=== PATIENT | female | born 1970 | race Caucasian/White ===

== ENCOUNTER 2017-10-19 14:56 | Emergency (ER) | payer BC, OTHER ==
[2017-10-19] MEDS ORDERED: TYLENOL PO ONE (18:29)
[2017-10-19 18:36] VITALS: BP 153/84
[2017-10-19 19:32] LABS: Basophils # (Auto) 0.1 K/mm3 (0.0-0.1); Basophils % (Auto) 1.2 % (0.0-1.8); Eosinophils # (Auto) 0.1 K/mm3 (0.0-0.4); Hemoglobin 13.3 gm/dl (10.1-14.3); Lymphocytes # (Auto) 1.8 K/mm3 (1.2-5.4); Lymphocytes % (Auto) 24.6 % (13.4-35.0); Mean Corpuscular HGB Conc 34 % (30-34); Mean Corpuscular Hemoglobin 32 pg (28-32); Mean Corpuscular Volume 95 fl (79-97); Monocytes # (Auto) 0.7 K/mm3 (0.0-0.8); Monocytes % (Auto) 9.8 % (0.0-7.3); Platelet Count 303 K/mm3 (140-440); Red Blood Count 4.12 M/mm3 (3.65-5.03); Red Cell Distribution Width 13.7 % (13.2-15.2)
[2017-10-19 19:54] LABS: BUN/Creatinine Ratio 20; Blood Urea Nitrogen 10 mg/dL (7-17); Calcium 9.3 mg/dL (8.4-10.2); Hemolysis Index 11
[2017-10-19] MEDS ORDERED: NORCO 5/325 PO ONE (20:26)
--- NOTE | 2017-10-19 20:26 | Emergency Department Report ---
HPI - General Chief Complaint: Abdominal Pain Time Seen by Provider: 10/19/17 19:52 - HPI HPI: 46-year-old female presents to the emergency department with complaint of a 3 day history of left-sided pelvic pain. This appeared to worsen last night and the patient says she was unable to get any sleep. She works at [employer] office and had a ultrasound done briefly appeared to show some fluid and/or blood around the ovaries. The patient has a history of a hysterectomy of the uterus. She has a history of hypertension and hyperthyroidism. She was given some Tylenol per triage which she says has helped decrease the discomfort to some extent. She has some nausea without vomiting. She denies any fever, dysuria, constipation or diarrhea. ED Past Medical Hx - Past Medical History Hx Hypertension: Yes Additional medical history: hypothyroid - Surgical History Hx Cholecystectomy: Yes Additional Surgical History: , tonsillectomy, breast reduction, hysterectomy - Social History Smoking Status: Never Smoker Substance Use Type: None - Medications Home Medications: Home Medications Medication Instructions Recorded Confirmed Last Taken Type Benazepril/Hydrochlorothiazide 1 tab PO DAILY 03/14/15 03/14/15 Unknown History [Benazepril-Hctz 20-25 mg] Metoprolol [Lopressor] 100 mg PO DAILY 03/14/15 03/14/15 Unknown History Dicyclomine [Bentyl] 10 mg PO QID PRN #20 capsule 03/15/15 Unknown Rx Ondansetron [Zofran Odt] 4 mg PO QID PRN #20 tab.rapdis 03/15/15 Unknown Rx HYDROcodone/APAP 5-325 [[place] 1 each PO Q6HR PRN #12 tablet 10/19/17 Unknown Rx 5/325] ED Review of Systems ROS: Stated complaint: OVARY CIST, BLEEDING Other details as noted in HPI Comment: All other systems reviewed and negative Constitutional: denies: chills, fever Eyes: denies: eye pain, eye discharge, vision change ENT: denies: ear pain, throat pain Respiratory: denies: cough, shortness of breath, wheezing Cardiovascular: denies: chest pain, palpitations Gastrointestinal: abdominal pain, nausea. denies: vomiting, diarrhea, constipation Genitourinary: other (pelvic pain). denies: dysuria, discharge Musculoskeletal: denies: back pain, joint swelling, arthralgia Skin: denies: rash, lesions Neurological: denies: headache, weakness, paresthesias Physical Exam - Physical Exam Vital Signs: Vital Signs 10/19/17 10/19/17 15:36 18:34 Temperature 98.4 F 97.8 F Pulse Rate 67 60 Respiratory 18 18 Rate Blood Pressure 135/99 153/84 O2 Sat by Pulse 98 98 Oximetry Physical Exam: GENERAL: The patient is well-developed well-nourished. HENT: Normocephalic. Atraumatic. Patient has moist mucous membranes. EYES: Extraocular motions are intact. Pupils equal reactive to light bilaterally. NECK: Supple. Trachea is midline. CHEST/LUNGS: Clear to auscultation. There is no respiratory distress noted. HEART/CARDIOVASCULAR: Regular. There is no tachycardia. There is no murmur. ABDOMEN: Abdomen is soft. There is some reproducible left lower quadrant tenderness to palpation. No guarding. Patient has normal bowel sounds. There is no abdominal distention. SKIN: Skin is warm and dry. NEURO: The patient is awake, alert, and oriented. The patient is cooperative. The patient has no focal neurologic deficits. The patient has normal speech. MUSCULOSKELETAL: There is no tenderness or deformity. There is no limitation range of motion. There is no evidence of acute injury. ED Course Vital Signs 10/19/17 10/19/17 15:36 18:34 Temperature 98.4 F 97.8 F Pulse Rate 67 60 Respiratory 18 18 Rate Blood Pressure 135/99 153/84 O2 Sat by Pulse 98 98 Oximetry ED Medical Decision Making - Lab Data Result diagrams: 10/19/17 19:13 10/19/17 19:13 - Radiology Data Radiology results: report reviewed EXAM: CT ABDOMEN PELVIS W CON HISTORY: LLQ abd pain TECHNIQUE: CT abdomen and pelvis with intravenous contrast PRIORS: None. FINDINGS: No acute abnormality identified in the lung bases. No focal abnormality identified within the liver parenchyma. Patient is status post cholecystectomy. The spleen demonstrates normal size and attenuation. No pancreatic abnormalities seen. The kidneys demonstrate symmetric contrast enhancement. No evidence of hydronephrosis. Noted is a 2.1 centimeter nonenhancing focus upper pole left kidney consistent with a cyst additional tiny hypodensity at the lower pole is probable cyst although too small further characterize. The adrenal glands are unremarkable Abdominal aorta is normal in caliber. No pathologically enlarged lymph nodes are identified. No signs of free fluid or free air No evidence of small bowel dilatation. Colon is nondistended. No pericolonic inflammatory change. Urinary bladder is unremarkable. IMPRESSION: Negative. No acute abnormalities seen Transcribed By: COLT Dictated By: HEAVEN ENCARNACION MD Electronically Authenticated By: HEAVEN ENCARNACION MD Signed Date/Time: 10/19/17 4854 EXAM: US TRANSVAGINAL HISTORY: pelvic pain TECHNIQUE: Ultrasound pelvis transvaginal with pulsed and color Doppler evaluation PRIORS: Correlated with a prior CT abdomen and pelvis of March 14, 2015 FINDINGS: Patient status post hysterectomy Right ovary is identified it measures 1.7 x 1.1 x 1.2 centimeters. No abnormal adnexal mass identified The left ovary is not definitively identified There is small amount fluid within the pelvis containing a few septations. IMPRESSION: Right ovary appears sonographically unremarkable Left ovary not definitively identified Small complex fluid collection within the pelvis etiology uncertain Status post hysterectomy If continued clinical concern consider CT abdomen and pelvis Transcribed By: COLT Dictated By: HEAVEN ENCARNACION MD Electronically Authenticated By: HEAVEN ENCARNACION MD Signed Date/Time: 10/19/17 6764 - Medical Decision Making Patient presents with a three-day history of some left lower quadrant abdominal and pelvic tenderness to palpation. Labs today were unremarkable including no leukocytosis, no electrolyte abnormalities. The patient had a transvaginal ultrasound that did not show any torsion, ovarian cysts or any source of her symptoms. There is a small amount of complex fluid but etiology of that is uncertain. A CT scan of the abdomen and pelvis was recommended by the reading radiologist. This was done as well and resulted as a normal examination. Her vital signs were stable throughout her ED course. She was given a single [place] and her pain greatly improved. She appears safe for discharge home. She has good follow-up with primary care and [facility]. She will return to the ER with any worsening of her symptoms or any acute distress. - Differential Diagnosis ovarian torsion, ovarian cyst, fibroid, diverticulitis Critical Care Time: No Critical care attestation.: If time is entered above; I have spent that time in minutes in the direct care of this critically ill patient, excluding procedure time. ED Disposition Clinical Impression: Pelvic pain Abdominal pain Qualifiers: Abdominal location: left lower quadrant Qualified Code(s): R10.32 - Left lower quadrant pain HTN (hypertension) Qualifiers: Hypertension type: essential hypertension Qualified Code(s): I10 - Essential ( primary) hypertension Disposition: TO HOME OR SELFCARE Is pt being admited?: No Condition: Stable Instructions: Abdominal Pain (ED), Hypertension (ED) Additional Instructions: Please follow-up with your primary care physician in the next few days. Return to the emergency Department with any worsening of your symptoms are any acute distress. You have been prescribed a medication that is sedating and therefore should not be taken prior to driving, working, and responsible for children and in no way should be mixed with alcohol of any quantity. Prescriptions: HYDROcodone/APAP 5-325 [[place] 5/325] 1 each PO Q6HR PRN #12 tablet PRN Reason: Pain Referrals: CARLOS DASILVA MD [Primary Care Provider] - 3-5 Days Time of Disposition: 23:44
--- NOTE | 2017-10-19 21:36 | XRay Report ---
FINAL REPORT EXAM: XR ABDOMEN 2V HISTORY: Abd pain TECHNIQUE: Supine and upright abdomen PRIORS: None. FINDINGS: Moderate amount of stool and gas present within the colon. No evidence of colonic or small bowel dilatation. No signs of free air. No abnormal calcifications are identified. Surgical clips in the right upper quadrant noted most consistent with a prior cholecystectomy. IMPRESSION: Nonobstructive bowel gas pattern. No acute abnormality seen.
--- NOTE | 2017-10-19 21:42 | Ultrasound Report ---
FINAL REPORT EXAM: US TRANSVAGINAL HISTORY: pelvic pain TECHNIQUE: Ultrasound pelvis transvaginal with pulsed and color Doppler evaluation PRIORS: Correlated with a prior CT abdomen and pelvis of March 14, 2015 FINDINGS: Patient status post hysterectomy Right ovary is identified it measures 1.7 x 1.1 x 1.2 centimeters. No abnormal adnexal mass identified The left ovary is not definitively identified There is small amount fluid within the pelvis containing a few septations. IMPRESSION: Right ovary appears sonographically unremarkable Left ovary not definitively identified Small complex fluid collection within the pelvis etiology uncertain Status post hysterectomy If continued clinical concern consider CT abdomen and pelvis
--- NOTE | 2017-10-19 21:43 | Ultrasound Report ---
FINAL REPORT EXAM: US PELVIS DUPLEX DOPPLER COMP HISTORY: pelvic pain TECHNIQUE: Ultrasound pelvis transabdominal PRIORS: None. FINDINGS: Patient status post hysterectomy Right ovary is identified it measures 1.7 x 1.1 x 1.2 centimeters. No abnormal adnexal mass identified The left ovary is not definitively identified There is small amount fluid within the pelvis containing a few septations. IMPRESSION: Right ovary appears sonographically unremarkable Left ovary not definitively identified Small complex fluid collection within the pelvis etiology uncertain Status post hysterectomy If continued clinical concern consider CT abdomen and pelvis
--- NOTE | 2017-10-19 23:22 | Cat Scan Report ---
FINAL REPORT EXAM: CT ABDOMEN PELVIS W CON HISTORY: LLQ abd pain TECHNIQUE: CT abdomen and pelvis with intravenous contrast PRIORS: None. FINDINGS: No acute abnormality identified in the lung bases. No focal abnormality identified within the liver parenchyma. Patient is status post cholecystectomy. The spleen demonstrates normal size and attenuation. No pancreatic abnormalities seen. The kidneys demonstrate symmetric contrast enhancement. No evidence of hydronephrosis. Noted is a 2.1 centimeter nonenhancing focus upper pole left kidney consistent with a cyst additional tiny hypodensity at the lower pole is probable cyst although too small further characterize. The adrenal glands are unremarkable Abdominal aorta is normal in caliber. No pathologically enlarged lymph nodes are identified. No signs of free fluid or free air No evidence of small bowel dilatation. Colon is nondistended. No pericolonic inflammatory change. Urinary bladder is unremarkable. IMPRESSION: Negative. No acute abnormalities seen
== END 2017-10-19 23:48 | disposition home or self-care (01) ==
LOC: ED 14:56
DX: R10.2 Pelvic and perineal pain (principal); R11.0 Nausea; R10.32 Left lower quadrant pain; I10 Essential (primary) hypertension; E03.9 Hypothyroidism, unspecified; Z90.49 Acquired absence of other specified parts of digestive tract; Z90.710 Acquired absence of both cervix and uterus; Z88.0 Allergy status to penicillin
CPT/HCPCS: 36415; 74019; 74177; 76830; 80048; 85025; 93975; 99284; Q9967